=== PATIENT | female | born 1955 | race Caucasian/White ===

== ENCOUNTER → 2024-12-24 | Day surgery (SDC) | payer MEDICARE ==
[2024-12-22 14:06] LABS: BASOPHILS % 0.3 % (0.0-1.0); EOSINOPHILS % 1.6 % (0.0-6.0); LYMPHOCYTES % 39.1 % (18.0-39.1); MONOCYTES % 6.5 % (4.4-11.3); NEUTROPHILS % 52.4 % (38.7-80.0); RED CELL DISTRIBUTION WIDTH 13.1 % (11.7-14.4)
[2024-12-22 14:20] LABS: EST GLOMERULAR FILTRATION RATE 71.0 ML/MIN (>=60)
[~2024-12-24] MED LIST: BENICAR20 MG PO; FENTANYL CITRATE/PF 100MCG/2 ML INJ ONE; FOSAMAX70 MG PO; LIDOCAINE HCL 2% LOCAL INJ 5 ML SDV VIAL INJ ONE; MIDAZOLAM HCL 2 MG/2 ML VIAL ONE; PROPOFOL IV EMULSION 10 MG/ML 20 ML VIAL ONE; ZOCOR20 MG PO; ZOLOFT50 MG PO
[2024-12-24] MEDS: TETRACAINE HCL 0.5% OPTH SOLN 4 ML BTL ONE (12:11)
[2024-12-24] MEDS: GATIFLOXACIN(OPTH) 5 ML LIQD ONE (12:12)
[2024-12-24] MEDS: CYCLOPENTOLATE HCL 2% OPTH SOLN 2 ML BTL OP ONE (12:12)
[2024-12-24] MEDS: PHENYLEPHRINE HCL 2 ML DROPS ONE (12:13)
[2024-12-24] MEDS: LACTATED RINGER'S 1,000 ML ONE (12:13)
[2024-12-24 14:54] VITALS: TEMP 97.6
[2024-12-24 15:10] VITALS: BP 140/76; PULSE 70; RESP 16; O2SAT 97
== END | disposition home or self-care (01) ==
LOC: OR 09:48
PROVIDERS: ATTEND Ophthalmology
DX: H25.12 Age-related nuclear cataract, left eye (principal); I10 Essential (primary) hypertension; E78.2 Mixed hyperlipidemia; R01.1 Cardiac murmur, unspecified; F41.8 Other specified anxiety disorders; R25.1 Tremor, unspecified; M81.0 Age-related osteoporosis without current pathological fracture; Z87.11 Personal history of peptic ulcer disease; Z01.812 Encounter for preprocedural laboratory examination; Z79.899 Other long term (current) drug therapy
CPT/HCPCS: 36415; 66984; 80048; 85025; J2003; J2250; J2704; J3010; J7121; V2632

== ENCOUNTER → 2025-01-28 | Day surgery (SDC) | payer MEDICARE ==
[2025-01-27 13:42] LABS: BASOPHILS % 0.3 % (0.0-1.0); EOSINOPHILS % 1.7 % (0.0-6.0); LYMPHOCYTES % 38.1 % (18.0-39.1); MONOCYTES % 6.5 % (4.4-11.3); NEUTROPHILS % 53.1 % (38.7-80.0); RED CELL DISTRIBUTION WIDTH 13.1 % (11.7-14.4)
[2025-01-27 14:10] LABS: EST GLOMERULAR FILTRATION RATE 77.0 ML/MIN (>=60)
[~2025-01-28] MED LIST changes: +DEXAMETHASONE SOD PHOS INJ 4 MG/ML SDV ONE; -FENTANYL CITRATE/PF 100MCG/2 ML INJ ONE; +GLYCOPYRROLATE INJ 0.2 MG/ML VIAL ONE; -MIDAZOLAM HCL 2 MG/2 ML VIAL ONE; +ONDANSETRON HCL INJ 2MG/ML 2ML 2 MG/ML VIAL ONE
[2025-01-28] MEDS: LACTATED RINGER'S 1,000 ML ONE (06:54)
[2025-01-28] MEDS: TETRACAINE HCL 0.5% OPTH SOLN 4 ML BTL ONE (06:55)
[2025-01-28] MEDS: PHENYLEPHRINE HCL 2 ML DROPS ONE (06:55)
[2025-01-28] MEDS: GATIFLOXACIN(OPTH) 5 ML LIQD ONE (06:55)
[2025-01-28] MEDS: CYCLOPENTOLATE HCL 2% OPTH SOLN 2 ML BTL OP ONE (06:55)
[2025-01-28 09:02] VITALS: TEMP 97
[2025-01-28 09:30] VITALS: BP 156/80; PULSE 72; RESP 14; O2SAT 99
== END | disposition home or self-care (01) ==
LOC: OR 05:46
PROVIDERS: ATTEND Ophthalmology
DX: H25.11 Age-related nuclear cataract, right eye (principal); I10 Essential (primary) hypertension; E78.5 Hyperlipidemia, unspecified; R01.1 Cardiac murmur, unspecified; K28.9 Gastrojejunal ulcer, unspecified as acute or chronic, without hemorrhage or perforation; F41.9 Anxiety disorder, unspecified; F32.A Depression, unspecified; Z88.0 Allergy status to penicillin; Z88.2 Allergy status to sulfonamides; Z88.8 Allergy status to other drugs, medicaments and biological substances; Z01.810 Encounter for preprocedural cardiovascular examination; Z01.812 Encounter for preprocedural laboratory examination; Z79.899 Other long term (current) drug therapy
CPT/HCPCS: 36415; 66984; 80048; 85025; 93005; J1100; J2003; J2405; J2704; J7121; V2632